=== PATIENT | female | born 1955 | race Caucasian/White ===

== ENCOUNTER 2019-08-03 18:18 | Emergency (ER) | payer OTHER ==
[~2019-08-03] VITALS: Ht 162.6 cm; Wt 72.6 kg
[2019-08-03] MEDS ORDERED: ASPIRIN325 MG (18:34)
[2019-08-03] MEDS ORDERED: LEVOTHYROXINE25 MCG (18:35)
== END 2019-08-04 14:50 | disposition home or self-care (01) ==
LOC: ER 18:18
DX: I87.2 Venous insufficiency (chronic) (peripheral) (principal); M25.562 Pain in left knee